=== PATIENT | male | born 1985 ===

== ENCOUNTER → 2017-07-30 | Outpatient (CLI) | payer SELFPAY ==
[~2017-07-30] MED LIST: CEPH500T7 PO; HYDR-385 PO
[2017-07-30 09:28] LABS: PLATELET COUNT, AUTOMATED 216 K/uL (150-450)
== END ==
LOC: LAB 08:43
PROVIDERS: ATTEND Nurse Practitioner Psychiatric/Mental Health
DX: I10 Essential (primary) hypertension (principal); R73.9 Hyperglycemia, unspecified
CPT/HCPCS: 36415; 82040; 82247; 82310; 82374; 82435; 82565; 82947; 83036; 84075; 84132; 84155; 84295; 84450; 84460; 84520; 85025

== ENCOUNTER → 2017-09-27 | Outpatient (CLI) | payer BC ==
[2017-09-27 09:02] LABS: LDL CHOLESTEROL 54 mg/dl
== END ==
LOC: LAB 08:16
PROVIDERS: ATTEND Nurse Practitioner Family
DX: E11.65 Type 2 diabetes mellitus with hyperglycemia (principal); E78.5 Hyperlipidemia, unspecified
CPT/HCPCS: 36415; 82040; 82247; 82310; 82374; 82435; 82465; 82565; 82947; 83036; 83718; 84075; 84132; 84155; 84295; 84443; 84450; 84460; 84478; 84520